=== PATIENT | male | born 1940 | race Two or more races ===

== ENCOUNTER 2021-11-08 06:38 | Day surgery (SDC) | payer OTHER ==
[~2021-11-08] VITALS: Ht 182.9 cm; Wt 95.3 kg
[~2021-11-08 06:38] MED LIST: ASPI1TAB19 PO; CYCL-839 PO; ESOM1CAP12 PO; ISOS1TAB28 PO; LEVO50TA7 PO; LISI20TA28 PO; LOVA40TA72 PO; METF-490 PO; METO-6 PO; ZOLP5TAB5 PO
[2021-11-08] MEDS ORDERED: IODIXANOL 320MG/ML 100ML BTL IV ONE ×3 (07:31→10:16)
[2021-11-08] MEDS ORDERED: LIDOCAINE 2%HCL (LOCAL ANESTH.) INJ 10ml MDV ONE (07:32)
[2021-11-08] MEDS ORDERED: HEPARIN SODIUM (PORCINE) 5000 UNITS/ML 1ML VIAL ONE (08:58)
[2021-11-08] MEDS ORDERED: ANGIOMAX 250 MG VIAL IV ONE (08:58)
[2021-11-08] MEDS ORDERED: fentaNYL CITRATE 100 MCG/2 ML VL ONE (08:59)
[2021-11-08] MEDS ORDERED: MIDAZOLAM HCL 2MG/2ML 2ml VIAL (1mg/ml) ONE (08:59)
[2021-11-08] MEDS ORDERED: VERAPAMIL 2.5MG/ML INJ 2ML VIAL IV ONE (08:59)
[2021-11-08] MEDS ORDERED: SODIUM CHL 0.9% 50 ML ONE (08:59)
[2021-11-08] MEDS ORDERED: ASPirin 325 MG TAB ONE (10:24)
[2021-11-08] MEDS ORDERED: TICAGRELOR 90 MG TAB ONE (10:24)
== END 2021-11-08 14:00 | disposition home or self-care (01) ==
LOC: CATH 06:38
PROVIDERS: ATTEND Internal Medicine Cardiovascular Disease
DX: R94.39 Abnormal result of other cardiovascular function study (principal); R06.02 Shortness of breath; I25.10 Atherosclerotic heart disease of native coronary artery without angina pectoris; E78.5 Hyperlipidemia, unspecified; K59.00 Constipation, unspecified; E11.22 Type 2 diabetes mellitus with diabetic chronic kidney disease; I12.9 Hypertensive chronic kidney disease with stage 1 through stage 4 chronic kidney disease, or unspecified chronic kidney disease; N18.9 Chronic kidney disease, unspecified; M10.9 Gout, unspecified; Z20.822 Contact with and (suspected) exposure to COVID-19
CPT/HCPCS: 93458; 93571; C1725; C1769; C1874; C1887; C1894; C9600; C9803; J0583; J1644; J2001; J2250; J3010; J7030; Q9967; U0003; 99152; 99153

== ENCOUNTER 2021-11-16 16:32 | Inpatient (IN) | payer OTHER ==
[~2021-11-16] VITALS: Ht 182.9 cm; Wt 94.0 kg
[2021-11-16] MEDS ORDERED: D5W/SOD CHLO 0.9% 1,000 ML IV ONE (16:45)
[2021-11-16 17:34] LABS: Basophils # (auto) 0 10 ^3/uL (0-0.2); Basophils % (auto) 0.3 % (0.0-2.0); Eosinophils # (auto) 0.1 10 ^3/uL (0-0.8); Eosinophils % (auto) 0.5 % (0.0-7.0); Hematocrit 36.4 % (41.0-53.0); Hemoglobin 11.9 g/dL (13.5-17.5); Lymphocytes # (auto) 0.9 10 ^3/uL (0.4-5.4); Lymphocytes % (auto) 5.7 % (10.0-50.0); Mean Corpuscular Hemoglobin 28.3 pg (28.0-32.0); Mean Corpuscular Hgb Conc. 32.6 g/dL (32.0-36.0); Mean Corpuscular Volume 86.6 fL (80.0-100.0); Monocytes # (auto) 0.9 10 ^3/uL (0-1.3); Monocytes % (auto) 6.1 % (0.0-12.0); Neutrophils % (auto) 87.4 % (37.0-80.0); Red Blood Cells 4.21 10^6/uL (4.5-5.90); Red Cell Distribution Width 15.8 % (11.8-14.3); White Blood Cell 14.9 10^3/uL (4.4-10.8)
[2021-11-16 17:51] LABS: Alanine Aminotransferase 17 U/L (16-61); Albumin 3.7 g/dL (3.4-5.0); Anion Gap 9 (5-15); Aspartate Aminotransferase 9 U/L (15-37); BUN/Creatinine Ratio 12.4; Blood Alcohol < 3.0 mg/dL (0-5); Blood Urea Nitrogen 17 mg/dL (7-18); Calcium 8.8 mg/dL (8.5-10.1); Carbon Dioxide 23 mmol/L (21-32); Chloride 107 mmol/L (98-107); GFR African American 64 mL/min; GFR Non-African American 53 mL/min; Glucose 181 mg/dL (74-106); Magnesium 1.9 mg/dL (1.6-2.6); Potassium 4.7 mmol/L (3.5-5.1); Sodium 139 mmol/L (136-145)
[2021-11-16 17:54] LABS: Alkaline Phosphatase 61 U/L (45-117); Bilirubin, Total 0.2 mg/dL (0.2-1.0); Total Protein 7.3 g/dL (6.4-8.2)
[2021-11-16 20:34] LABS: Urine Bacteria NONE SEEN /hpf (None Seen); Urine Blood Negative /uL (Negative); Urine Specific Gravity 1.005 (1.001-1.035); Urine WBC 1 /hpf (0 - 3)
[2021-11-16] MEDS ORDERED: DEXTROSE (50%) 50ML SYRG IV PRN (20:45)
[2021-11-16] MEDS ORDERED: ACETAMINOPHEN 325 MG TAB PO PRN (20:45)
[2021-11-16] MEDS ORDERED: TEMAZEPAM 15 MG CAP PO PRN (20:45)
[2021-11-16] MEDS: ATORVASTATIN 20 MG TAB PO SCH (23:05)
[2021-11-16] MEDS: ACCU-CHEK COMFORT CURVE STRIP VI SCH (23:11)
[2021-11-16] MEDS: InsuLIN REG 1unit/0.01ml Soln (100units/ml) SC SCH (23:18)
[2021-11-17 00:49] VITALS: BP 100/76
[2021-11-17] MEDS: InsuLIN REG 1unit/0.01ml Soln (100units/ml) SC SCH ×5 (04:00→20:46)
[2021-11-17] MEDS: ACCU-CHEK COMFORT CURVE STRIP VI SCH ×5 (04:38→20:45)
[2021-11-17 05:04] VITALS: BP 132/62
[2021-11-17] MEDS: LEVOTHYROXINE SODIUM 50 MCG TAB PO SCH (06:07)
[2021-11-17 07:22] LABS: Calcium 8.9 mg/dL (8.5-10.1)
[2021-11-17 07:24] LABS: BUN/Creatinine Ratio 13.4
[2021-11-17 07:31] LABS: Basophils # (auto) 0 10 ^3/uL (0-0.2); Basophils % (auto) 0.5 % (0.0-2.0); Eosinophils # (auto) 0.1 10 ^3/uL (0-0.8); Eosinophils % (auto) 0.6 % (0.0-7.0); Hematocrit 36.4 % (41.0-53.0); Hemoglobin 11.9 g/dL (13.5-17.5); Lymphocytes # (auto) 1.4 10 ^3/uL (0.4-5.4); Lymphocytes % (auto) 13.2 % (10.0-50.0); Mean Corpuscular Hemoglobin 28.7 pg (28.0-32.0); Mean Corpuscular Hgb Conc. 32.8 g/dL (32.0-36.0); Mean Corpuscular Volume 87.5 fL (80.0-100.0); Monocytes # (auto) 0.7 10 ^3/uL (0-1.3); Monocytes % (auto) 7.1 % (0.0-12.0); Neutrophils # (auto) 8.2 10 ^3/uL (1.6-8.6); Neutrophils % (auto) 78.6 % (37.0-80.0); Nucleated Red Blood Cells % 0.1 %; Red Blood Cells 4.16 10^6/uL (4.5-5.90); Red Cell Distribution Width 15.8 % (11.8-14.3); White Blood Cell 10.4 10^3/uL (4.4-10.8)
[2021-11-17] MEDS: LISINOPRIL 20 MG TAB PO SCH (08:59)
[2021-11-17] MEDS: ISOSORBIDE MONONITRATE ER 60 MG TAB PO SCH (08:59)
[2021-11-17 09:00] VITALS: BP 143/74
[2021-11-17] MEDS: ENOXAPARIN SOD 40 MG/0.4 ML SYRINGE SC SCH (09:00)
[2021-11-17] MEDS: METOPROLOL SUCCINATE XL 50 MG TAB PO SCH (09:00)
[2021-11-17 13:00] VITALS: BP 108/72
[2021-11-17 14:51] LABS: Folate (Folic Acid) 8.23 ng/mL (5.38-24)
[2021-11-17 17:00] VITALS: BP 103/61
[2021-11-17] MEDS ORDERED: CYAN1KIT3 IJ (17:55)
[2021-11-17] MEDS ORDERED: CYANOCOBALAMIN (B-12) 1000 MCG/1 ML VIAL IM ONE (21:00)
[2021-11-17 22:01] VITALS: BP 109/66
[2021-11-17 22:12] LABS: Cholesterol 121 mg/dL (< 200)
[2021-11-17 22:15] LABS: HDL Cholesterol 43 mg/dL (40-59); LDL Cholesterol 65 mg/dL (< 100); Triglycerides 136 mg/dL (< 150)
[2021-11-17] MEDS: ATORVASTATIN 20 MG TAB PO SCH (22:27)
[2021-11-18] MEDS: ACCU-CHEK COMFORT CURVE STRIP VI SCH ×5 (00:02→16:04)
[2021-11-18] MEDS: InsuLIN REG 1unit/0.01ml Soln (100units/ml) SC SCH ×5 (04:00→16:00)
[2021-11-18 05:00] VITALS: BP 105/67
[2021-11-18] MEDS: LEVOTHYROXINE SODIUM 50 MCG TAB PO SCH (06:43)
[2021-11-18 08:06] LABS: RPR Non Reactive (Non Reactive)
[2021-11-18 09:00] VITALS: BP 113/70
[2021-11-18] MEDS: ENOXAPARIN SOD 40 MG/0.4 ML SYRINGE SC SCH (09:01)
[2021-11-18] MEDS ORDERED: ASPirin 81 mg TAB PO SCH (10:00)
[2021-11-18] MEDS ORDERED: CYANOCOBALAMIN 500 MCG TAB PO SCH (10:00)
[2021-11-18] MEDS: METOPROLOL SUCCINATE XL 50 MG TAB PO SCH (12:44)
[2021-11-18] MEDS: LISINOPRIL 20 MG TAB PO SCH (12:45)
[2021-11-18] MEDS: ISOSORBIDE MONONITRATE ER 60 MG TAB PO SCH (12:48)
[2021-11-18 13:00] VITALS: BP 121/77
[2021-11-18 17:00] VITALS: BP 143/75
[2021-11-18 17:54] VITALS: BP 121/77
== END 2021-11-18 19:20 | disposition home health service (06) | DRG 92 ==
LOC: EDBD 16:32 → ER 16:32 → OVERFLOW 20:45 → WEST WING 22:23
PROVIDERS: ADMIT Nurse Practitioner; ATTEND Internal Medicine
DX: G92.8 Other toxic encephalopathy (principal); G93.1 Anoxic brain damage, not elsewhere classified; D72.829 Elevated white blood cell count, unspecified; E03.9 Hypothyroidism, unspecified; E11.21 Type 2 diabetes mellitus with diabetic nephropathy; E11.649 Type 2 diabetes mellitus with hypoglycemia without coma; E53.8 Deficiency of other specified B group vitamins; F17.200 Nicotine dependence, unspecified, uncomplicated; I10 Essential (primary) hypertension; K21.9 Gastro-esophageal reflux disease without esophagitis; Z20.822 Contact with and (suspected) exposure to COVID-19; E78.5 Hyperlipidemia, unspecified; G47.00 Insomnia, unspecified; Z86.73 Personal history of transient ischemic attack (TIA), and cerebral infarction without residual deficits; Z79.82 Long term (current) use of aspirin; Z79.899 Other long term (current) drug therapy
CPT/HCPCS: 36415; 70450; 70551; 71045; 80048; 80053; 80061; 80320; 81001; 82607; 82746; 82962; 83735; 84443; 85025; 86592; 93005; 93306; 93886; 96360; 96372; 97163; G0378; J1815

== ENCOUNTER 2022-10-28 10:51 | Emergency (ER) | payer OTHER ==
[~2022-10-28] VITALS: Ht 182.9 cm; Wt 90.9 kg
[~2022-10-28 10:51] MED LIST changes: +CYAN1KIT3 IJ; -CYCL-839 PO; -ZOLP5TAB5 PO
[2022-10-28 12:16] LABS: Basophils # (auto) 0.1 10 ^3/uL (0-0.2); Monocytes # (auto) 0.7 10 ^3/uL (0-1.3)
[2022-10-28 12:18] LABS: Basophils % (auto) 0.8 % (0.0-2.0); Eosinophils # (auto) 0.3 10 ^3/uL (0-0.8); Eosinophils % (auto) 2.9 % (0.0-7.0); Hematocrit 39.9 % (41.0-53.0); Hemoglobin 12.7 g/dL (13.5-17.5); Lymphocytes # (auto) 2.2 10 ^3/uL (0.4-5.4); Lymphocytes % (auto) 25.4 % (10.0-50.0); Mean Corpuscular Hemoglobin 25.3 pg (28.0-32.0); Mean Corpuscular Hgb Conc. 31.9 g/dL (32.0-36.0); Mean Corpuscular Volume 79.4 fL (80.0-100.0); Monocytes % (auto) 7.6 % (0.0-12.0); Neutrophils # (auto) 5.6 10 ^3/uL (1.6-8.6); Neutrophils % (auto) 63.3 % (37.0-80.0); Red Blood Cells 5.03 10^6/uL (4.5-5.90); White Blood Cell 8.8 10^3/uL (4.4-10.8)
[2022-10-28 12:23] LABS: Urine Bacteria NONE SEEN /hpf (None Seen); Urine Blood Negative /uL (Negative); Urine Specific Gravity 1.028 (1.001-1.035); Urine WBC 7 /hpf (0 - 3)
[2022-10-28 12:23] LABS: Red Cell Distribution Width 24.8 % (11.8-14.3)
[2022-10-28 12:32] LABS: Albumin 3.8 g/dL (3.4-5.0); Calcium 9.2 mg/dL (8.5-10.1); Magnesium 2.2 mg/dL (1.6-2.6); Potassium 4.6 mmol/L (3.5-5.1)
[2022-10-28 12:36] LABS: BUN/Creatinine Ratio 21.1 (10.0-20.0); Bilirubin, Total 0.4 mg/dL (0.2-1.0); Total Protein 7.2 g/dL (6.4-8.2)
[2022-10-28] MEDS ORDERED: ONDANSETRON HCL 4 MG/2 ML VIAL IV ONE (12:45)
[2022-10-28] MEDS ORDERED: MORPHINE SULFATE 4 MG/ML SYR/VIAL IV ONE (12:45)
[2022-10-28] MEDS ORDERED: MORPHINE SULFATE 4 MG/ML SYR/VIAL IM ONE (13:30)
[2022-10-28] MEDS ORDERED: TRAM-297 PO (14:25)
[2022-10-28 14:40] VITALS: BP 104/69
== END 2022-10-28 14:43 | disposition home or self-care (01) ==
LOC: ER 10:51
DX: R10.11 Right upper quadrant pain (principal); I10 Essential (primary) hypertension; E11.9 Type 2 diabetes mellitus without complications; E78.5 Hyperlipidemia, unspecified; E03.9 Hypothyroidism, unspecified; Z90.89 Acquired absence of other organs; Z79.82 Long term (current) use of aspirin; Z79.84 Long term (current) use of oral hypoglycemic drugs; Z79.899 Other long term (current) drug therapy
CPT/HCPCS: 36415; 74176; 80053; 81001; 83735; 84484; 85025; 93005; 96372; 96374; 99285; J2270; J2405

== ENCOUNTER 2022-11-05 15:50 | Inpatient (IN) | payer OTHER ==
[~2022-11-05] VITALS: Ht 182.9 cm; Wt 91.0 kg
[~2022-11-05 15:50] MED LIST changes: +TRAM-297 PO
[2022-11-05] MEDS ORDERED: SODIUM CHLORIDE 0.9% 1,000 ML IV ONE (16:30)
[2022-11-05] MEDS ORDERED: ONDANSETRON HCL 4 MG/2 ML VIAL IV ONE (16:30)
[2022-11-05] MEDS ORDERED: PIPERACILLIN-TAZOB 3.375GM 100 ML IV ONE (16:30)
[2022-11-05] MEDS ORDERED: MORPHINE SULFATE 4 MG/ML SYR/VIAL IV ONE (16:30)
[2022-11-05 16:45] LABS: Mean Corpuscular Hemoglobin 26.4 pg (28.0-32.0); White Blood Cell 7.8 10^3/uL (4.4-10.8)
[2022-11-05 16:47] LABS: Hematocrit 37.4 % (41.0-53.0); Hemoglobin 12.5 g/dL (13.5-17.5); Mean Corpuscular Hgb Conc. 33.4 g/dL (32.0-36.0); Red Blood Cells 4.74 10^6/uL (4.5-5.90)
[2022-11-05 16:56] LABS: Red Cell Distribution Width 24.2 % (11.8-14.3)
[2022-11-05 16:57] LABS: Basophils % (manual) 0 (0.0-2.0); Blast Cells 0; Metamyelocytes % 0; Myelocytes % 0; Promyelocytes % 0; Reactive Lymphocytes 0
[2022-11-05 17:04] LABS: Albumin 3.7 g/dL (3.4-5.0); BUN/Creatinine Ratio 16.3 (10.0-20.0); Calcium 9.2 mg/dL (8.5-10.1); Potassium 4.5 mmol/L (3.5-5.1)
[2022-11-05 17:07] LABS: Bilirubin, Total 0.3 mg/dL (0.2-1.0); Total Protein 6.9 g/dL (6.4-8.2)
[2022-11-05 17:43] LABS: Lactic Acid w/Reflex 2.3 mmol/L (0.4-2.0)
[2022-11-05 18:13] LABS: Band Neutrophils % (manual) 3; Eosinophils % (manual) 3 (0-7); Lymphocytes % (manual) 25 (10.0-50.0); Monocytes % (manual) 4 (0-12)
[2022-11-05] MEDS ORDERED: IOHEXOL 350 MG/ML 100ML IJ ONE (19:44)
[2022-11-05] MEDS ORDERED: PANTOPRAZOLE 40 MG/10 ML VIAL INJ IV ONE (19:45)
[2022-11-05] MEDS ORDERED: MORPHINE SULFATE INJ 2 MG/ml SYRG IV PRN (19:45)
[2022-11-05] MEDS ORDERED: DEXTROSE (50%) 50ML SYRG IV PRN (19:45)
[2022-11-05] MEDS ORDERED: NITROGLYCERIN 0.4 MG SL TAB SL PRN (19:45)
[2022-11-05] MEDS ORDERED: hydrALAZINE HCL 20 MG/ML VL IV PRN (20:00)
[2022-11-05 20:19] LABS: Alcohol, Urine < 3.0 mg/dL (0-10); Amphetamine Screen, Urine NEGATIVE (NEGATIVE); Barbiturate Scree,Urine NEGATIVE (NEGATIVE); Benzodiazephine Screen, Urine NEGATIVE (NEGATIVE); Cannabinoid Screen, Urine NEGATIVE (NEGATIVE); Cocaine Screen, Urine NEGATIVE (NEGATIVE); Opiate Scree,Urine NEGATIVE (NEGATIVE); Phencyclidine Screen, Urine NEGATIVE (NEGATIVE); Urine Bacteria NONE SEEN /hpf (None Seen); Urine Blood Negative /uL (Negative); Urine Specific Gravity 1.018 (1.001-1.035); Urine WBC 1 /hpf (0 - 3)
[2022-11-05 20:28] LABS: INR 0.99 (0.9-1.15); Partial Thromboplastin Time 29.2 sec (24.6-33.4)
[2022-11-05 20:37] LABS: Cholesterol 132 mg/dL (< 200); HDL Cholesterol 49 mg/dL (40-59); LDL Cholesterol 69 mg/dL (< 100); Triglycerides 133 mg/dL (< 150)
[2022-11-05] MEDS: MORPHINE SULFATE INJ 2 MG/ml SYRG IV PRN (22:57)
[2022-11-05] MEDS: SODIUM CHLORIDE 0.9% 1,000 ML IV SCH (23:57)
[2022-11-06] MEDS: ACCU-CHEK COMFORT CURVE STRIP VI SCH ×4 (00:03→18:00)
[2022-11-06] MEDS: SODIUM CHLORIDE 0.9% 1,000 ML IV SCH ×2 (04:40→11:52)
[2022-11-06] MEDS: ONDANSETRON HCL 4 MG/2 ML VIAL IV PRN ×2 (05:13→16:17)
[2022-11-06] MEDS: MORPHINE SULFATE INJ 2 MG/ml SYRG IV PRN ×2 (05:13→16:18)
[2022-11-06 05:17] LABS: Hemoglobin 11.6 g/dL (13.5-17.5); Mean Corpuscular Hgb Conc. 32.8 g/dL (32.0-36.0)
[2022-11-06 05:19] LABS: Hematocrit 35.3 % (41.0-53.0); Mean Corpuscular Hemoglobin 26.4 pg (28.0-32.0); Mean Corpuscular Volume 80.7 fL (80.0-100.0); Red Blood Cells 4.38 10^6/uL (4.5-5.90); White Blood Cell 8.3 10^3/uL (4.4-10.8)
[2022-11-06 05:27] LABS: Red Cell Distribution Width 23.6 % (11.8-14.3)
[2022-11-06 05:29] LABS: Basophils % (manual) 0 (0.0-2.0); Blast Cells 0; Metamyelocytes % 0; Myelocytes % 0; Promyelocytes % 0; Reactive Lymphocytes 0
[2022-11-06] MEDS: InsuLIN REG 1unit/0.01ml Soln (100units/ml) SC SCH ×4 (06:37→18:00)
[2022-11-06] MEDS ORDERED: ISOSORBIDE MONONITRATE ER 60 MG TAB PO SCH (07:00)
[2022-11-06] MEDS ORDERED: METOPROLOL SUCCINATE XL 50 MG TAB PO SCH (07:00)
[2022-11-06] MEDS ORDERED: LISINOPRIL 20 MG TAB PO SCH (07:00)
[2022-11-06] MEDS ORDERED: LEVOTHYROXINE SODIUM 50 MCG TAB PO SCH (07:00)
[2022-11-06 08:27] LABS: Free T3 2.55 pg/mL (2.3-4.2); Free T4 (Free Thyroxine) 0.96 ng/dL (0.89-1.76)
[2022-11-06 09:51] LABS: Band Neutrophils % (manual) 9; Eosinophils % (manual) 1 (0-7); Lymphocytes % (manual) 22 (10.0-50.0); Monocytes % (manual) 3 (0-12)
[2022-11-06] MEDS ORDERED: PANTOPRAZOLE 40 MG/10 ML VIAL INJ IV SCH (10:00)
[2022-11-06 17:50] VITALS: BP 151/80
== END 2022-11-06 17:56 | disposition home health service (06) | DRG 392 ==
LOC: ER 15:50 → TELE 19:51
PROVIDERS: ADMIT Registered Nurse; ATTEND Internal Medicine
DX: K21.9 Gastro-esophageal reflux disease without esophagitis (principal); E87.20 Acidosis, unspecified; E11.51 Type 2 diabetes mellitus with diabetic peripheral angiopathy without gangrene; E03.9 Hypothyroidism, unspecified; Z20.822 Contact with and (suspected) exposure to COVID-19; I10 Essential (primary) hypertension; I25.10 Atherosclerotic heart disease of native coronary artery without angina pectoris; G89.29 Other chronic pain; D63.8 Anemia in other chronic diseases classified elsewhere; I25.119 Atherosclerotic heart disease of native coronary artery with unspecified angina pectoris; I71.9 Aortic aneurysm of unspecified site, without rupture; I72.3 Aneurysm of iliac artery; Z79.82 Long term (current) use of aspirin; Z79.899 Other long term (current) drug therapy; Z95.5 Presence of coronary angioplasty implant and graft
CPT/HCPCS: 36415; 71260; 74176; 74177; 76705; 80053; 80061; 80307; 81001; 82962; 83036; 83605; 83880; 84439; 84443; 84481; 84484; 85007; 85027; 85610; 85730; 87040; 87426; 93005; 96361; 96365; 96366; 96375; C9113; G0378; J2405; J2543

== ENCOUNTER 2023-06-29 00:43 | Inpatient (IN) | payer OTHER ==
[~2023-06-29] VITALS: Ht 185.4 cm; Wt 90.5 kg
[2023-06-29] VITALS (7 sets, daily range): BP systolic 147–189; BP diastolic 68–89; PULSE 69–79; RESP 18; TEMP 36.7; O2SAT 94–99
[~2023-06-29 00:43] MED LIST changes: -LISI20TA28 PO; +LISI20TA56 PO
[2023-06-29] MEDS ORDERED: NITROGLYCERIN 0.4 MG SL TAB SL PRN (03:00)
[2023-06-29] MEDS ORDERED: ACETAMINOPHEN 325 MG TAB PO PRN (03:00)
[2023-06-29] MEDS ORDERED: ONDANSETRON HCL 4 MG/2 ML VIAL IV PRN (03:00)
[2023-06-29] MEDS ORDERED: DOCUSATE SOD 100 MG CAP PO PRN (03:00)
[2023-06-29] MEDS ORDERED: LABETALOL HCL 5 MG/ML 4ML SYRINGE IV PRN (03:00)
[2023-06-29] MEDS ORDERED: MORPHINE SULFATE INJ 2 MG/ml SYRG IV PRN (03:00)
[2023-06-29] MEDS ORDERED: DEXTROSE (50%) 50ML SYRG IV PRN (03:15)
[2023-06-29] MEDS ORDERED: HYDROcodone-ACET 5/325MG TAB PO PRN (05:00)
[2023-06-29] MEDS ORDERED: PNEUMOCOCCAL VACC POLYS 25 MCG/0.5 ML VIAL IM ONE (05:15)
[2023-06-29] MEDS ORDERED: ZOLP5TAB5 PO (05:27)
[2023-06-29 05:56] LABS: Chloride 103 mmol/L (98-107); Potassium 3.7 mmol/L (3.5-5.1); Sodium 139 mmol/L (136-145)
[2023-06-29 05:57] LABS: Anion Gap 9 (5-15); Calcium 9.1 mg/dL (8.5-10.1); Carbon Dioxide 27 mmol/L (20-30)
[2023-06-29 06:02] LABS: BUN/Creatinine Ratio 13.6 (10.0-20.0); Blood Urea Nitrogen 17 mg/dL (9-23); Glucose 91 mg/dL (74-106); Triglycerides 99 mg/dL (< 150)
[2023-06-29 06:03] LABS: LDL Cholesterol 73 mg/dL (< 100)
[2023-06-29 06:04] LABS: Cholesterol 139 mg/dL (< 200); HDL Cholesterol 52 mg/dL (40-59)
[2023-06-29 06:11] LABS: Hematocrit 42.1 % (41.0-53.0); Hemoglobin 14.1 g/dL (13.5-17.5); Mean Corpuscular Hemoglobin 30.8 pg (28.0-32.0); Mean Corpuscular Hgb Conc. 33.5 g/dL (32.0-36.0); Red Blood Cells 4.58 10^6/uL (4.5-5.90); Red Cell Distribution Width 14.2 % (11.8-14.3); White Blood Cell 7.4 10^3/uL (4.4-10.8)
[2023-06-29 06:18] LABS: Band Neutrophils % (manual) 0; Basophils % (manual) 0 (0.0-2.0); Blast Cells 0; Metamyelocytes % 0; Myelocytes % 0; Promyelocytes % 0; Reactive Lymphocytes 0
[2023-06-29] MEDS: InsuLIN REG 1unit/0.01ml Soln (100units/ml) SC SCH ×3 (06:36→17:00)
[2023-06-29] MEDS: ACCU-CHEK COMFORT CURVE STRIP VI SCH ×3 (06:36→17:00)
[2023-06-29 07:19] LABS: Eosinophils % (manual) 3 (0-7); Lymphocytes % (manual) 18 (10.0-50.0); Monocytes % (manual) 4 (0-12); Platelet Estimate Adequate; RBC Morphology Normal
[2023-06-29] MEDS ORDERED: METOPROLOL TARTRATE 50 MG TAB PO SCH (10:00)
[2023-06-29] MEDS ORDERED: CLOPIDOGREL BISULFATE 75 MG TAB PO SCH (10:00)
[2023-06-29] MEDS ORDERED: ASPirin 81 mg TAB PO SCH (10:00)
[2023-06-29] MEDS ORDERED: PANTOPRAZOLE 40 MG TAB PO SCH (10:00)
[2023-06-29] MEDS ORDERED: LOVA40TA72 PO (17:38)
[2023-06-29] MEDS ORDERED: ASPI1TAB19 PO (17:38)
[2023-06-29] MEDS ORDERED: CLOP75TA70 PO (17:39)
[2023-06-29] MEDS ORDERED: ATORVASTATIN 20 MG TAB PO SCH (22:00)
== END 2023-06-29 19:45 | disposition home or self-care (01) | DRG 69 ==
LOC: TELE-WESTW 00:47
PROVIDERS: ADMIT Hospitalist; ATTEND Hospitalist
DX: G45.9 Transient cerebral ischemic attack, unspecified (principal); E78.5 Hyperlipidemia, unspecified; E11.9 Type 2 diabetes mellitus without complications; I10 Essential (primary) hypertension; R47.81 Slurred speech; I25.10 Atherosclerotic heart disease of native coronary artery without angina pectoris; Z79.899 Other long term (current) drug therapy; Z82.49 Family history of ischemic heart disease and other diseases of the circulatory system; Z86.73 Personal history of transient ischemic attack (TIA), and cerebral infarction without residual deficits; Z95.5 Presence of coronary angioplasty implant and graft
CPT/HCPCS: 36415; 70551; 80048; 80061; 82962; 83036; 84443; 85007; 85027; 87081; 93306; 97163; G0378

== ENCOUNTER 2024-02-25 18:59 | Inpatient (IN) | payer OTHER ==
[~2024-02-25] VITALS: Ht 182.9 cm; Wt 79.2 kg
[~2024-02-25 18:59] MED LIST changes: +CLOP75TA70 PO; +ZOLP5TAB5 PO
[2024-02-25 19:53] LABS: Basophils # (auto) 0 10 ^3/uL (0-0.2); Basophils % (auto) 0.3 % (0.0-2.0); Eosinophils # (auto) 0.1 10 ^3/uL (0-0.8); Eosinophils % (auto) 0.7 % (0.0-7.0); Hematocrit 40.9 % (41.0-53.0); Hemoglobin 13.8 g/dL (13.5-17.5); Lymphocytes # (auto) 1.6 10 ^3/uL (0.4-5.4); Lymphocytes % (auto) 12.8 % (10.0-50.0); Mean Corpuscular Hemoglobin 30.7 pg (28.0-32.0); Mean Corpuscular Hgb Conc. 33.8 g/dL (32.0-36.0); Mean Corpuscular Volume 90.9 fL (80.0-100.0); Monocytes % (auto) 7.7 % (0.0-12.0); Neutrophils # (auto) 9.9 10 ^3/uL (1.6-8.6); Neutrophils % (auto) 78.5 % (37.0-80.0); Red Blood Cells 4.51 10^6/uL (4.5-5.90); White Blood Cell 12.6 10^3/uL (4.4-10.8)
[2024-02-25 20:09] LABS: Alanine Aminotransferase 10 U/L (7-40); Albumin 4.3 g/dL (3.2-4.8); Alkaline Phosphatase 51 U/L (46-116); Anion Gap 13 (5-15); Aspartate Aminotransferase < 8 U/L (13-40); BUN/Creatinine Ratio 13.6 (10.0-20.0); Bilirubin, Total 0.4 mg/dL (0.2-1.0); Blood Urea Nitrogen 22 mg/dL (9-23); Calcium 9.3 mg/dL (8.7-10.4); Carbon Dioxide 23 mmol/L (20-30); Chloride 104 mmol/L (98-107); Glucose 143 mg/dL (74-106); Potassium 3.9 mmol/L (3.5-5.1); Sodium 140 mmol/L (136-145); Total Protein 6.7 g/dL (5.7-8.2)
[2024-02-25 20:30] LABS: INR 1.12 (0.9-1.15); Partial Thromboplastin Time 27.9 SEC (24.5-34.5); Prothrombin Time 11.8 sec (9.3-11.8)
[2024-02-25] MEDS: PANTOPRAZOLE 40 MG/10 ML VIAL INJ IV ONE (23:11)
[2024-02-25] MEDS: SODIUM CHLORIDE 0.9% 500 ML IV ONE (23:11)
[2024-02-26] VITALS (7 sets, daily range): BP systolic 115–152; BP diastolic 49–70; PULSE 71–89; RESP 17–19; TEMP 97.4–98.1; O2SAT 95–98
[2024-02-26] MEDS: metroNIDAZOLE 500MG/100ML 100 ML IV ONE (02:44)
[2024-02-26] MEDS: levoFLOXacin 500MG 100 ML IV ONE (02:49)
[2024-02-26] MEDS ORDERED: NITROGLYCERIN 0.4 MG SL TAB SL PRN (03:00)
[2024-02-26] MEDS ORDERED: ACETAMINOPHEN 325 MG TAB PO PRN (03:00)
[2024-02-26] MEDS ORDERED: DEXTROSE (50%) 50ML SYRG IV PRN (03:00)
[2024-02-26] MEDS ORDERED: HYDROcodone-ACET 5/325MG TAB PO PRN (03:00)
[2024-02-26] MEDS ORDERED: MORPHINE SULFATE INJ 2 MG/ml SYRG IV PRN (03:00)
[2024-02-26] MEDS ORDERED: ONDANSETRON HCL 4 MG/2 ML VIAL IV PRN (03:00)
[2024-02-26] MEDS: ACCU-CHEK COMFORT CURVE STRIP VI SCH (06:30)
[2024-02-26] MEDS: InsuLIN REG 1unit/0.01ml Soln (100units/ml) SC SCH (06:30)
[2024-02-26 07:47] LABS: Chloride 107 mmol/L (98-107); Potassium 3.7 mmol/L (3.5-5.1); Sodium 142 mmol/L (136-145)
[2024-02-26 07:48] LABS: Anion Gap 10 (5-15); Carbon Dioxide 25 mmol/L (20-30)
[2024-02-26 07:49] LABS: Calcium 8.9 mg/dL (8.7-10.4)
[2024-02-26 07:53] LABS: BUN/Creatinine Ratio 16.9 (10.0-20.0); Blood Urea Nitrogen 23 mg/dL (9-23); Glucose 93 mg/dL (74-106)
[2024-02-26 08:05] LABS: Basophils # (auto) 0 10 ^3/uL (0-0.2); Basophils % (auto) 0.4 % (0.0-2.0); Eosinophils # (auto) 0.1 10 ^3/uL (0-0.8); Eosinophils % (auto) 0.9 % (0.0-7.0); Hematocrit 37.6 % (41.0-53.0); Hemoglobin 12.6 g/dL (13.5-17.5); Lymphocytes # (auto) 1.4 10 ^3/uL (0.4-5.4); Lymphocytes % (auto) 18.5 % (10.0-50.0); Mean Corpuscular Hemoglobin 30.8 pg (28.0-32.0); Mean Corpuscular Hgb Conc. 33.6 g/dL (32.0-36.0); Mean Corpuscular Volume 91.8 fL (80.0-100.0); Monocytes # (auto) 0.6 10 ^3/uL (0-1.3); Monocytes % (auto) 7.9 % (0.0-12.0); Neutrophils # (auto) 5.4 10 ^3/uL (1.6-8.6); Neutrophils % (auto) 72.3 % (37.0-80.0); Red Blood Cells 4.09 10^6/uL (4.5-5.90); Red Cell Distribution Width 15.1 % (11.8-14.3); White Blood Cell 7.4 10^3/uL (4.4-10.8)
[2024-02-26] MEDS: SODIUM CHLORIDE 0.9% 1,000 ML IV ONE (09:21)
[2024-02-26] MEDS: metroNIDAZOLE 500MG/100ML 100 ML IV SCH (11:47)
[2024-02-26] MEDS: MORPHINE SULFATE INJ 2 MG/ml SYRG IV PRN (11:56)
[2024-02-26 13:16] LABS: Hematocrit 37.9 % (41.0-53.0)
[2024-02-26 19:32] LABS: Hematocrit 41.6 % (41.0-53.0); Hemoglobin 13.6 g/dL (13.5-17.5)
[2024-02-26] MEDS: ZOLPIDEM TARTRATE 5 MG TAB PO PRN (22:20)
[2024-02-27] VITALS (7 sets, daily range): BP systolic 128–155; BP diastolic 68–81; PULSE 64–85; RESP 15–18; TEMP 97.3–98.1; O2SAT 92–98
[2024-02-27 00:32] LABS: Hematocrit 39.6 % (41.0-53.0); Hemoglobin 13.1 g/dL (13.5-17.5)
[2024-02-27] MEDS: levoFLOXacin 500MG 100 ML IV SCH (02:43)
[2024-02-27 05:37] LABS: Basophils # (auto) 0 10 ^3/uL (0-0.2); Basophils % (auto) 0.4 % (0.0-2.0); Eosinophils # (auto) 0.1 10 ^3/uL (0-0.8); Eosinophils % (auto) 1.9 % (0.0-7.0); Hematocrit 37.9 % (41.0-53.0); Hemoglobin 13.4 g/dL (13.5-17.5); Lymphocytes # (auto) 0.9 10 ^3/uL (0.4-5.4); Lymphocytes % (auto) 12.8 % (10.0-50.0); Mean Corpuscular Hemoglobin 31.8 pg (28.0-32.0); Mean Corpuscular Hgb Conc. 35.2 g/dL (32.0-36.0); Mean Corpuscular Volume 90.2 fL (80.0-100.0); Monocytes # (auto) 0.7 10 ^3/uL (0-1.3); Neutrophils # (auto) 5.6 10 ^3/uL (1.6-8.6); Neutrophils % (auto) 75.9 % (37.0-80.0); Red Cell Distribution Width 14.6 % (11.8-14.3); White Blood Cell 7.4 10^3/uL (4.4-10.8)
[2024-02-27 05:43] LABS: Anion Gap 9 (5-15); Carbon Dioxide 23 mmol/L (20-30); Chloride 107 mmol/L (98-107); Potassium 3.6 mmol/L (3.5-5.1); Sodium 139 mmol/L (136-145)
[2024-02-27 05:45] LABS: Calcium 8.9 mg/dL (8.7-10.4)
[2024-02-27 05:49] LABS: Blood Urea Nitrogen 12 mg/dL (9-23); Glucose 88 mg/dL (74-106)
[2024-02-27] MEDS ORDERED: ISO60SRT PO (10:25)
[2024-02-27] MEDS ORDERED: CYCL-839 PO (10:25)
[2024-02-27] MEDS ORDERED: LEVO75TA6 PO (10:25)
[2024-02-27] MEDS ORDERED: METF-370 PO (10:25)
[2024-02-27] MEDS ORDERED: MET50T PO (10:25)
[2024-02-27] MEDS ORDERED: DONE1TAB88 PO (10:25)
[2024-02-27] MEDS ORDERED: ESOM40CA83 PO (10:25)
[2024-02-27] MEDS: CYCLOBENZAPRINE HCL 10 MG TAB PO SCH (13:33)
[2024-02-27] MEDS: LISINOPRIL 20 MG TAB PO ONE (13:33)
[2024-02-27] MEDS: METOPROLOL TARTRATE 50 MG TAB PO ONE (13:34)
[2024-02-27] MEDS ORDERED: hydrALAZINE HCL 20 MG/ML VL IV PRN (14:00)
[2024-02-27] MEDS: DONEPEZIL HYDROCHLORIDE 5 MG TAB PO SCH (21:51)
[2024-02-27] MEDS: METOPROLOL TARTRATE 50 MG TAB PO SCH (22:02)
[2024-02-28 01:00] VITALS: BP_SYST 144; BP_SYST 158; BP_DIAS 54; BP_DIAS 66; PULSE 63; PULSE 75; RESP 17; RESP 18; TEMP 97.3; TEMP 97.5; O2SAT 100; O2SAT 99
[2024-02-28 05:00] VITALS: BP 133/79; PULSE 80; RESP 19; TEMP 98; O2SAT 98
[2024-02-28] MEDS: LEVOTHYROXINE SODIUM 50 MCG TAB PO SCH (06:29)
[2024-02-28] MEDS: PANTOPRAZOLE 40 MG TAB PO SCH (06:29)
[2024-02-28 08:09] VITALS: O2SAT 93
[2024-02-28 09:00] VITALS: BP 152/81; PULSE 72; RESP 16; TEMP 97.8; O2SAT 98
[2024-02-28 09:16] LABS: Hepatitis B Surface Antigen Negative (Negative)
[2024-02-28 09:39] LABS: Hepatitis C Antibody Negative (Negative)
[2024-02-28] MEDS: LISINOPRIL 20 MG TAB PO SCH (09:50)
[2024-02-28] MEDS ORDERED: ESOM40CA83 PO (12:00)
[2024-02-28] MEDS ORDERED: METR-344 PO (12:00)
[2024-02-28] MEDS ORDERED: CEPH500C PO (12:00)
[2024-02-28 13:00] VITALS: BP 157/81; PULSE 72; RESP 16; TEMP 97.3; O2SAT 98
== END 2024-02-28 16:40 | disposition home or self-care (01) | DRG 391 ==
LOC: ER 18:59 → TELE 02-26 03:06 → EAST 02-26 04:08 → TELE-EAST 02-27 09:34
PROVIDERS: ADMIT Nurse Practitioner Family; ATTEND Nurse Practitioner Family
DX: K52.9 Noninfective gastroenteritis and colitis, unspecified (principal); N17.0 Acute kidney failure with tubular necrosis; I25.10 Atherosclerotic heart disease of native coronary artery without angina pectoris; I72.3 Aneurysm of iliac artery; E03.9 Hypothyroidism, unspecified; I10 Essential (primary) hypertension; E78.5 Hyperlipidemia, unspecified; K21.9 Gastro-esophageal reflux disease without esophagitis; E11.51 Type 2 diabetes mellitus with diabetic peripheral angiopathy without gangrene; Z86.73 Personal history of transient ischemic attack (TIA), and cerebral infarction without residual deficits; Z95.5 Presence of coronary angioplasty implant and graft; Z82.49 Family history of ischemic heart disease and other diseases of the circulatory system; I25.2 Old myocardial infarction; Z87.891 Personal history of nicotine dependence
CPT/HCPCS: 36415; 74176; 80048; 80053; 82270; 82962; 85014; 85018; 85025; 85610; 85730; 86803; 86850; 86900; 86901; 87340; G0378; J1956; J2470; J3490